=== PATIENT | female | born 1985 ===

== ENCOUNTER 2016-09-24 20:25 | Day surgery (SDC) | payer OTHER ==
[~2016-09-24] VITALS: Ht 162.6 cm; Wt 87.2 kg
[2016-09-24 20:45] VITALS: BP 131/58; PULSE 75; TEMP 98
[2016-09-24 22:31] VITALS: BP 131/58; PULSE 75; TEMP 98
[2016-09-25] VITALS (10 sets, daily range): BP systolic 103–120; BP diastolic 47–69; PULSE 51–93; TEMP 97.1–98.9
[2016-09-25] MEDS ORDERED: NORCO 325 MG-51 TAB PO (00:31)
[2016-09-25] MEDS ORDERED: ZOFRAN ODT4 MG PO ×2 (00:32→10:31)
[2016-09-25] MEDS ORDERED: PERCOCET 325 MG1 TA2 PO (10:31)
== END 2016-09-25 11:49 | disposition home or self-care (01) ==
LOC: SURG 20:25 → SDCO 20:25 → SURG 20:26 → SDCO 09-25 11:49
DX: K35.80 Unspecified acute appendicitis (principal)
CPT/HCPCS: OP; J1885; J2270; J2405; J2704; J2710; J3010